=== PATIENT | female | born 1975 | race African-American/Black ===

== ENCOUNTER 2024-01-24 09:53 | Outpatient (CLI) | payer BC, SELFPAY ==
--- NOTE | ~2024-01-24 | US_ITS ---
EXAMINATION: US pelvic complete DATE: 01/24/2024 10:38 INDICATION: Abnormal uterine bleeding Comparison:01/22/2019 TECHNIQUE: Multiple transabdominal and endovaginal sonographic images of the pelvis performed. FINDINGS: The uterus measures 12.4 x 6.1 x 7.8 cm. There is a hypoechoic mass measuring 3.7 x 3.9 x 3 .4 cm posteriorly, consistent with a fibroid. The endometrial complex measures 1.4 cm. There is fluid in the endometrium. The right ovary measures 3.6 x 2.7 x 2.5 cm and the left ovary measures 3.3 x 1.9 x 4.1 cm. There ar e small follicles in each ovary. Normal doppler signal in both ovaries. There is no free fluid in the pelvis. There are no abnormal masses seen on either side. IMPRESSION: 1. Uterine fibroid posteriorly measuring 3.3 cm. Reviewed, dictated and finalized at location B.
== END 2024-01-24 09:54 ==
PROVIDERS: PCP Nurse Practitioner; Visit Provider Nurse Practitioner
DX: N93.8 Other specified abnormal uterine and vaginal bleeding (principal)
CPT/HCPCS: 76856

== ENCOUNTER 2024-04-02 08:30 | Outpatient (CLI) | payer BC, SELFPAY ==
[2024-04-02 08:57] LABS: Anion Gap 6 mmol/L (4-12); Blood Urea Nitrogen 11 mg/dL (7-17); Calcium 8.6 mg/dL (8.4-10.2); Carbon Dioxide 24 mmol/L (22-30); Chloride 109 mmol/L (98-107); Estimated Glomerular Filt Rate > 60; Glucose 95 mg/dL (65-110); Potassium 4.4 mmol/L (3.4-5.0); Sodium 139 mmol/L (137-145)
== END 2024-04-02 08:31 | disposition home or self-care (01) ==
LOC: ANHSURGERY 08:33
PROVIDERS: Anesthesiology; PCP Family Medicine; Visit Provider Obstetrics & Gynecology Gynecology
DX: Z79.899 Other long term (current) drug therapy (principal); Z01.818 Encounter for other preprocedural examination
CPT/HCPCS: 36415; 80048

== ENCOUNTER 2024-04-08 00:41 | Day surgery (SDC) | payer BC, SELFPAY ==
[2024-03-29 10:59] VITALS: BMI 28.3
--- NOTE | 2024-03-29 11:00 | PC.NURSE ---
Report to the Outpatient Waiting Room, entrance under the green pavilion located off [facility], at time _0600_ on date _[id number]_. Planned Procedure Time: _0730_. Time changes happen often and if your time is changed the preop area will call you the afternoon before. - You and your visitor will be asked to self-screen and do not enter if you have any COVID symptoms. - A mask is optional within the hospital at this time. Patients may have clear liquids (water, carbonated beverages, clear teas, apple juice) until 3 hours prior to surgery with a maximum of 20 ounces. - No food from midnight until time of surgery Take the following medications with a SIP of water the morning of surgery: ___Amlodipine and if needed inhalers. DO NOT STOP ANY OF YOUR OTHER PRESCRIPTION MEDICATIONS PRIOR TO SURGERY ?EXCEPT THE FOLLOWING Medications to discontinue per physician ____None Date to take last dose Please no make-up, nail central african, hairspray, perfume, deodorant, or body powder the day of surgery. No jewelry (including any body piercings) or valuables the day of surgery, leave them at home. Please take a shower or bath the night before, or the morning of, surgery with an antibacterial soap. Wear comfortable, loose fitting clothing. - Jewelry must be removed prior to entering the operating room. Rings and piercings that are not removed may be cut off. - The hospital will not accept responsibility for valuables. - Please leave all valuables, including medications, at home the day of surgery. If you are going home after surgery, a licensed dedicated truck driver must drive you home. - NO public transportation without another adult if you receive anesthesia. - We recommend that an adult stay with you for 24 hours following discharge. - We also recommend that you do not drive, make important decision, drink alcoholic beverages, or take any drugs that were not prescribed by your health care provider for at least 24 hours after your discharge time. Follow any additional instructions given to you from your surgeon. If you or anyone in your household have experienced Covid symptoms in the past week, please notify your surgeon or the nurse liaison at the phone number below for possible testing. Telephone instructions given to __Selmaestefani___and asked if any additional questions and then verbalized understanding. Patient advised to call surgeon office or pre surgery nurse liaison [phone] if any additional questions.
--- NOTE | 2024-04-08 07:22 | WPDHPUPDATE1 ---
History and Physical Update Update Date/Time: 04/08/24 07:22 History and Physical has been reviewed, including an updated exam of the patient. There are NO changes in the patient's condition. Risks, benefits, and alternatives have been discussed and questions answered. Patient agrees to proceed with procedure.
--- NOTE | 2024-04-08 07:22 | PM.HPGS ---
History of Present Illness History of Present Illness Consent: Risks, benefits, and alternatives have been discussed and questions answered. Patient agrees to proceed with procedure. Chief complaint: Abnormal Uterine Bleeding Narrative: Leatha Vallecillo is a 49 year old female with random breakthrough bleeding. Pelvic ultrasound is normal except for known fibroids. It was recommended to undergo D&C hysteroscopy for further evaluation. Due to her prior history of ablation the patient was given Cytotec to take for 1 week prior to the procedure. Risks of infection, bleeding, perforation, and inability to enter the cavity are reviewed. Patient voices understanding and agrees to proceed. Review of Systems Review of Systems: not repeated day of surgery; patient states no changes in status PMFSH Past Medical History Medical History (Updated 04/08/24 @ 07:26 by Jessica Cunningham MD) Asthma HTN (hypertension) (normal spontaneous vaginal delivery) x2 Surgical History Surgical History (Updated 04/08/24 @ 07:26 by Jessica Cunningham MD) History of endometrial ablation 2019 History of hysteroscopy 2019 Family History Family History Mother Hypertension Father Family history of cardiovascular disease Family history of lung cancer Social History Social History (Updated 01/29/24 @ 13:03 by Yamila Moody) Years smoked: 3 Smoking status: Current every day smoker Tobacco type: cigars Second hand tobacco smoke exposure: No Alcohol intake: current Drinks per week: 3 Alcohol use details: social Substance use: never Substance use type: does not use Do You Feel Safe in your Home?: Yes Lack of Transportation: No Lack of Food: Never True Current Housing: I Have Housing Concerned About Future Housing: No Difficulty Paying Gas/Electric Bills: No Difficulty Paying for Meds: No Currently Unemployed: No Education: Don't Know Difficulty w/ Childcare or Family Care: No Living arrangements: with family Occupation/Education: occupation Gender identity (if verbalized by the patient): Female Sexual Orientation (if Verbalized by the Patient): Straight or Heterosexual Spiritual care concerns: No Meds Home Medications and Allergies Home Medications Medication Instructions Recorded Confirmed Type fluticasone propionate 110 1 puff inhalation Q12H #12 grams 10/07/20 03/29/24 Rx mcg/actuation HFA aerosol inhaler (Flovent HFA) albuterol sulfate 90 mcg/actuation 1 puff inhalation Q4H PRN 09/21/21 03/29/24 Rx aerosol inhaler shortness of breath or wheezing #6.7 grams amlodipine 10 mg tablet (Norvasc) 10 mg PO DAILY #90 tabs 01/29/24 03/29/24 Rx hydrochlorothiazide 50 mg tablet 50 mg PO DAILY #60 tabs 01/29/24 03/29/24 Rx Allergies Allergy/AdvReac Type Severity Reaction Status Date / Time No Known Allergies Allergy Unverified 03/29/24 10:52 Exam Const: General: healthy appearing and alert Orientation/consciousness: patient oriented x3 Resp: Effort & Inspection: normal respiratory effort GI: GI Palp: Yes Soft to palpation, No Tenderness to palpation present (GI) and No Palpable mass present : External Female Exam: normal external appearance Speculum Exam - Vagina: normal appearance of the vagina and normal vaginal discharge Speculum Exam - Cervix: normal appearance of the cervix Bimanual exam- vagina & uterus: consistency normal and enlarged Bimanual Exam- Adnexa, other: normal adnexae and No adnexal tenderness Neuro: General: patient oriented x3 Assessment and Plan Assessment and plan (1) Metrorrhagia: Code(s): N92.1 - Excessive and frequent menstruation with irregular cycle Status: Acute Assessment and Plan: plan to proceed with D&C hysteroscopy
[2024-04-08 07:45] VITALS: BP 150/101; PULSE 97; RESP 20; TEMP 36.1; O2SAT 99
[2024-04-08] MEDS: ACETAMINOPHEN 500 MG TABLET 1000 MG PO (08:12)
[2024-04-08] MEDS: LACTATED RINGERS 1,000 ML 30 ML IV CONT ×2 (08:15→10:51)
--- NOTE | 2024-04-08 08:36 | WPDANESEPPF ---
Anes - Initial Pre Proc Eval Procedure: Operation Date: 04/08/24 09:30 Proposed Procedures p Hysteroscopy Dilation and Curettage - Jessica Cunningham MD Date/Time: 04/08/24 08:36 Surgeon: Jessica Cunningham MD Pre Op Diagnosis: Abnormal Uterine Bleeding Patient Data Age: 49 Gender: F Height: 1.65 m Weight: 74.4 kg Last Vital Signs Temp 97.0 F L 04/08/24 07:45 Pulse 97 04/08/24 07:45 Resp 20 04/08/24 07:45 BP 150/101 H 04/08/24 07:45 Pulse Ox 99 04/08/24 07:45 O2 Del Method Room Air 04/08/24 07:45 Allergies Allergy/AdvReac Type Severity Reaction Status Date / Time No Known Allergies Allergy Unverified 04/08/24 07:41 Home Medications Medication Instructions Recorded Confirmed Type fluticasone propionate 110 1 puff inhalation Q12H #12 grams 10/07/20 03/29/24 Rx mcg/actuation HFA aerosol inhaler (Flovent HFA) albuterol sulfate 90 mcg/actuation 1 puff inhalation Q4H PRN 09/21/21 03/29/24 Rx aerosol inhaler shortness of breath or wheezing #6.7 grams amlodipine 10 mg tablet (Norvasc) 10 mg PO DAILY #90 tabs 01/29/24 04/08/24 Rx hydrochlorothiazide 50 mg tablet 50 mg PO DAILY #60 tabs 01/29/24 04/08/24 Rx Patient hx anesthesia problems: none Family hx anesthesia problems: none Results Review: All pre-operative results and documents have been reviewed as part of the pre-operative evaluation. [facility] Past Medical History Medical History (Updated 04/08/24 @ 07:26 by Jessica Cunningham MD) Asthma HTN (hypertension) (normal spontaneous vaginal delivery) x2 Surgical History Surgical History (Updated 04/08/24 @ 07:26 by Jessica Cunningham MD) History of endometrial ablation 2019 History of hysteroscopy 2019 Family History Family History Mother Hypertension Father Family history of cardiovascular disease Family history of lung cancer Social History Social History (Updated 05/06/24 @ 13:03 by Yamila Moody) Years smoked: 3 Smoking status: Current every day smoker Tobacco type: cigars Second hand tobacco smoke exposure: No Alcohol intake: current Drinks per week: 3 Alcohol use details: social Substance use: never Substance use type: does not use Do You Feel Safe in your Home?: Yes Lack of Transportation: No Lack of Food: Never True Current Housing: I Have Housing Concerned About Future Housing: No Difficulty Paying Gas/Electric Bills: No Difficulty Paying for Meds: No Currently Unemployed: No Education: Don't Know Difficulty w/ Childcare or Family Care: No Living arrangements: with family Occupation/Education: occupation Gender identity (if verbalized by the patient): Female Sexual Orientation (if Verbalized by the Patient): Straight or Heterosexual Spiritual care concerns: No Anes - Eval Final PreProcedure Day of Procedure 04/08/24 08:36 Patient weight: normal Heart: regular rate and rhythm Lungs: clear to auscultation Airway: Mallampati scale class II Neurological: alert and oriented Last oral intake: >/= 8 hours ASA classification: II Emergent: no Anesthetic plan: proceed Anesthesia type and monitoring: general GIVS and standard monitoring Results Review: All pre-operative results and documents have been reviewed as part of the pre-operative evaluation. Informed Consent: The patient's anesthetic plan and its attendant risks and benefits were discussed with the patient/family/POA. Questions were solicited and answers provided to the satisfaction of the patient/family/POA.
--- NOTE | 2024-04-08 09:14 | SUR.PREOP ---
0900-Pt and family aware surgeon delays self ~30 minutes.
[2024-04-08] MEDS: KETOROLAC 15 MG/ML VIAL (*BKC) IV PUSH (10:43)
--- NOTE | 2024-04-08 10:44 | P.OP_ITS ---
Procedure Note - Detailed Date of Procedure 04/08/24 Pre-op Diagnosis Abnormal Uterine Bleeding Post-op Diagnosis Same Procedure Performed hysteroscopy D&C Surgeon Jessica Cunningham MD Anesthesia MAC Findings cervix is stenotic endometrium was very scarred consistent with prior ablation Description of Procedure The patient is taken to the operating room and placed under anesthesia in the dorsal lithotomy position. She was prepped and draped in the usual sterile fashion. Bethel speculum was placed in the vagina and the cervix grasped on the anterior lip with a tenaculum. The uterus was attempted to be sounded and internal cervical stenosis was encountered. The Hegar dilators were not able to pass. The os Finders are used and able to enter the cavity. The uterus is then sounded to 8cm. The diagnostic hysteroscope was placed. With no abnormalities noted the hysteroscope was removed. The sharp OO curette is used to curette the endometrium until a good uterine cry is noted in all areas. Minimal material was obtained consistent with the appearance of the endometrium. All instruments are removed. Sponge, needle, and instrument counts are correct per the OR staff. Patient was awakened from anesthesia and taken to recovery in sta ble condition. Estimated Blood Loss 5 Drains No Packing No Pathology Yes ( endometrial curettings) Complications No immediate complications Condition Stable Disposition PACU
[2024-04-08 10:51] VITALS: BP 130/75; PULSE 77; RESP 16; O2SAT 100
[2024-04-08 11:20] VITALS: BP 137/68; PULSE 70; RESP 18; O2SAT 100
[2024-04-08] MEDS: oxyCODONE HCL (*CRX) 5 MG TAB IR PO (11:25)
[2024-04-08 11:45] VITALS: BP 137/89; PULSE 69; RESP 16
== END 2024-04-08 11:57 | disposition home or self-care (01) ==
PROVIDERS: PCP Family Medicine; Visit Provider Obstetrics & Gynecology Gynecology
PROC: 0U5B8ZZ Destruction of Endometrium, Via Natural or Artificial Opening Endoscopic (ICD-10-PCS; CPT 58563; principal; 2024-04-08 09:30)
DX: N92.1 Excessive and frequent menstruation with irregular cycle (principal); J45.909 Unspecified asthma, uncomplicated; I10 Essential (primary) hypertension; Z79.51 Long term (current) use of inhaled steroids; F17.290 Nicotine dependence, other tobacco product, uncomplicated
CPT/HCPCS: 58558; 88305; A9270; J1100; J1885; J2250; J2704; J3010; J7120

== ENCOUNTER 2024-08-16 12:53 | Outpatient (CLI) | payer BC, SELFPAY ==
--- NOTE | 2024-08-16 13:13 | ECG_ITS ---
Test Date: 2024-08-16 13:37:18 Measurements Intervals Stow Rate: 73 P: 40 UT: 144 QRS: 8 QRSD: 95 T: 11 QT: 372 QTc: 412 Interpretive Statements SINUS RHYTHM POOR R WAVE PROGRESSION CONSIDER INFERIOR INFARCT, AGE INDETERMINATE BASELINE ARTIFACT- I, II, III, AVR, AVL, AVF ABNORMAL ECG No previous ECG available for comparison Electronically Signed On 08-16-2024 13:42:22 DATA SECURITY CONSULTANT by Anselmo Nye D.O.
[2024-08-16 13:43] LABS: Hematocrit 41.1 % (37.0-47.0); Hemoglobin 13.3 g/dL (12.0-15.0)
[2024-08-16 13:54] LABS: Anion Gap 4 mmol/L (4-12); Blood Urea Nitrogen 12 mg/dL (7-17); Calcium 9.3 mg/dL (8.4-10.2); Carbon Dioxide 29 mmol/L (22-30); Chloride 106 mmol/L (98-107); Estimated Glomerular Filt Rate > 60; Glucose 95 mg/dL (65-110); Potassium 3.9 mmol/L (3.4-5.0); Sodium 139 mmol/L (137-145)
== END 2024-08-16 12:54 | disposition home or self-care (01) ==
LOC: ANHSURGERY 13:01
PROVIDERS: Anesthesiology; PCP Family Medicine; Visit Provider Obstetrics & Gynecology Gynecology
DX: Z01.818 Encounter for other preprocedural examination (principal); N92.1 Excessive and frequent menstruation with irregular cycle; I10 Essential (primary) hypertension; R94.31 Abnormal electrocardiogram [ECG] [EKG]; Z79.899 Other long term (current) drug therapy
CPT/HCPCS: 36415; 80048; 85014; 85018; 86850; 86900; 86901; 93005

== ENCOUNTER 2024-08-19 13:17 | Inpatient (IN) | payer BC, SELFPAY ==
[2024-08-15 15:26] VITALS: BMI 28.3
--- NOTE | 2024-08-15 15:32 | PC.NURSE ---
Report to the Outpatient Waiting Room, entrance under the green pavilion located off [facility], at time _0830_ on date _[id number]_. Planned Procedure Time: _1030_.? Time changes happen often and if your time is changed the preop area will call you the afternoon before. - You and your visitor will be asked to self-screen and do not enter if you have any COVID symptoms. Please call surgeon if you need to reschedule. - A mask is optional within the hospital at this time. Patients may have clear liquids (water, carbonated beverages, clear teas, apple juice) until 3 hours prior to surgery with a maximum of 20 ounces. - No food from midnight until time of surgery and no smoking. This includes no chewing gum, candy or mints. Take only the following medications with a SIP of water on the morning of surgery: __Amlodipine, Flovent and if needed may use Albuterol____ DO NOT STOP ANY OF YOUR OTHER PRESCRIPTION MEDICATIONS PRIOR TO SURGERY EXCEPT THE FOLLOWING Medications to discontinue per physician ____None Please no make-up, nail chinese, hairspray, perfume, deodorant, or body powder the day of surgery.? No jewelry (including any body piercings) or valuables the day of surgery, leave them at home.? Please take a shower or bath the night before, or the morning of, surgery with an antibacterial soap.? Wear comfortable, loose fitting clothing.? . - Jewelry must be removed prior to entering the operating room.? Rings and piercings that are not removed may be cut off. - The hospital will not accept responsibility for valuables.? - Please leave all valuables, including medications, at home the day of surgery. If you are going home after surgery, a licensed security patrol driver must drive you home.? - NO public transportation without another adult if you receive anesthesia. - We recommend that an adult stay with you for 24 hours following discharge. - We also recommend that you do not drive, make important decision, drink alcoholic beverages, or take any drugs that were not prescribed by your health care provider for at least 24 hours after your discharge time. Follow any additional instructions given to you from your surgeon. Telephone instructions given to _Leatha__and asked if any additional questions and then verbalized understanding. Patient advised to call surgeon office or pre surgery nurse liaison [phone] if any additional questions.
[2024-08-19] VITALS (10 sets, daily range): BP systolic 112–155; BP diastolic 52–96; PULSE 67–97; RESP 12–20; TEMP 36.1–37.3; O2SAT 97–100
--- NOTE | 2024-08-19 08:01 | P.HP_ITS ---
H&P: HPI History of Present Illness Date/Time: 08/19/24 08:01 Chief Complaint: dysmenorrhea Narrative: The the patient is a 49-year-old with persistent dysmenorrhea. Patient initially with menorrhagia and dysmenorrhea. She underwent a Faye endometrial ablation. The menorrhagia resolved but the dysmenorrhea remained. Patient has tried medication and underwent a 2nd hysteroscopy D&C in 2023 without success. Patient has decided to proceed with hysterectomy for definitive treatment. Due to the size of her uterus at approximately 16 weeks size, the plan is for total abdominal hysterectomy. In addition pros and cons of bilateral salpingo-oophorectomy were reviewed. Patient wishes to proceed with a bilateral salpingo-oophorectomy. Risks of hormone replacement were also reviewed and the plan is for hormone replacement postoperatively. Risks of surgery including infection, bleeding, injury to internal organs (bowel, bladder, ureters), anesthesia, and deep vein thrombosis are reviewed. Patient voices understanding and agrees to proceed. Review of Systems Review of Systems: not repeated day of surgery; patient states no changes in status PMFSH Past Medical History Medical History (Updated 08/19/24 @ 08:06 by Jessica Cunningham MD) Asthma HTN (hypertension) (normal spontaneous vaginal delivery) x2 Surgical History Surgical History (Updated 08/19/24 @ 08:04 by Jessica Cunningham MD) History of bilateral tubal ligation History of endometrial ablation 2018 History of hysteroscopy Family History Family History Mother Hypertension Father Family history of cardiovascular disease Family history of lung cancer Social History Social History Years smoked: 3 Smoking status: Current some day smoker Tobacco type: cigars Second hand tobacco smoke exposure: No Alcohol intake: current Drinks per week: 3 Alcohol use details: social Substance use: never Substance use type: does not use Do You Feel Safe in your Home?: Yes Lack of Transportation: No Lack of Food: Never True Current Housing: I Have Housing Concerned About Future Housing: No Difficulty Paying Gas/Electric Bills: No Difficulty Paying for Meds: No Currently Unemployed: No Education: Don't Know Difficulty w/ Childcare or Family Care: No Living arrangements: with family Occupation/Education: occupation Gender identity (if verbalized by the patient): Female Sexual Orientation (if Verbalized by the Patient): Straight or Heterosexual Spiritual care concerns: No Meds Home Medications and Allergies Home Medications Medication Instructions Recorded Confirmed Type fluticasone propionate 110 1 puff inhalation Q12H #12 grams 10/07/20 08/15/24 Rx mcg/actuation HFA aerosol inhaler (Flovent HFA) albuterol sulfate 90 mcg/actuation 1 puff inhalation Q4H PRN 09/21/21 08/15/24 Rx aerosol inhaler shortness of breath or wheezing #6.7 grams hydrochlorothiazide 50 mg tablet 50 mg PO DAILY #60 tabs 01/29/24 08/15/24 Rx losartan 25 mg tablet 25 mg PO DAILY #90 tabs 05/08/24 08/15/24 Rx benzonatate 100 mg capsule 100 - 200 mg PO TID PRN cough #60 05/31/24 08/15/24 Rx caps tirzepatide (weight loss) 2.5 2.5 mg (0.5 mL) subcut WEEKLY #2 mL 06/08/24 08/15/24 Rx mg/0.5 mL subcutaneous pen injector (Zepbound) amlodipine 10 mg tablet (Norvasc) 10 mg PO DAILY #90 tabs 07/18/24 08/15/24 Rx Allergies Allergy/AdvReac Type Severity Reaction Status Date / Time No Known Allergies Allergy Verified 08/15/24 15:51 Exam Const: General: healthy appearing and alert Orientation/consciousness: patient oriented x3 Resp: Effort & Inspection: normal respiratory effort GI: GI Palp: Yes Soft to palpation, No Tenderness to palpation present (GI) and No Palpable mass present : External Female Exam: normal external appearance Speculum Exam - Vagina: normal appearance of the vagina and normal vaginal discharge Speculum Exam - Cervix: normal appearance of the cervix Bimanual exam- vagina & uterus: enlarged Bimanual Exam- Adnexa, other: normal adnexae and No adnexal tenderness Neuro: General: patient oriented x3 Assessment and Plan Assessment and plan (1) Dysmenorrhea: Code(s): N94.6 - Dysmenorrhea, unspecified Status: Acute Assessment and Plan: plan to proceed with total abdominal hysterectomy with bilateral salpingo- oophorectomy
--- NOTE | 2024-08-19 08:01 | WPDHPUPDATE1 ---
History and Physical Update Update Date/Time: 08/19/24 08:01 History and Physical has been reviewed, including an updated exam of the patient. There are NO changes in the patient's condition. Risks, benefits, and alternatives have been discussed and questions answered. Patient agrees to proceed with procedure.
[2024-08-19] MEDS: KETOROLAC 15 MG/ML VIAL (*BKC) IV PUSH (09:15)
[2024-08-19] MEDS: ACETAMINOPHEN 500 MG TABLET 1000 MG PO ×3 (09:15→19:51)
[2024-08-19] MEDS: LACTATED RINGERS 1,000 ML 30 ML IV CONT ×2 (09:30→12:00)
[2024-08-19 10:04] LABS: Glucose Point of Care 104 mg/dl (65-105)
--- NOTE | 2024-08-19 10:06 | WPDANESEPPF ---
Anes - Initial Pre Proc Eval Procedure: Operation Date: 08/19/24 10:30 Proposed Procedures p Total Abdominal Hysterectomy with Bilateral Salpingo-oophorectomy - Jessica Cunningham MD Date/Time: 08/19/24 10:06 Surgeon: Jessica Cunningham MD Pre Op Diagnosis: Dysmenorrhea Patient Data Age: 49 Gender: F Height: 1.65 m Weight: 77.3 kg Allergies Allergy/AdvReac Type Severity Reaction Status Date / Time No Known Allergies Allergy Verified 08/15/24 15:51 Home Medications Medication Instructions Recorded Confirmed Type fluticasone propionate 110 1 puff inhalation Q12H #12 grams 10/07/20 08/15/24 Rx mcg/actuation HFA aerosol inhaler (Flovent HFA) albuterol sulfate 90 mcg/actuation 1 puff inhalation Q4H PRN 09/21/21 08/15/24 Rx aerosol inhaler shortness of breath or wheezing #6.7 grams hydrochlorothiazide 50 mg tablet 50 mg PO DAILY #60 tabs 01/29/24 08/15/24 Rx losartan 25 mg tablet 25 mg PO DAILY #90 tabs 05/08/24 08/15/24 Rx benzonatate 100 mg capsule 100 - 200 mg PO TID PRN cough #60 05/31/24 08/15/24 Rx caps tirzepatide (weight loss) 2.5 2.5 mg (0.5 mL) subcut WEEKLY #2 mL 06/08/24 08/15/24 Rx mg/0.5 mL subcutaneous pen injector (Zepbound) amlodipine 10 mg tablet (Norvasc) 10 mg PO DAILY #90 tabs 07/18/24 08/15/24 Rx Laboratory Tests 08/19/24 09:54 POC Capillary Glucose 104 mg/dl (65-105) Patient hx anesthesia problems: none Family hx anesthesia problems: none Results Review: All pre-operative results and documents have been reviewed as part of the pre-operative evaluation. [facility] Past Medical History Medical History (Updated 08/19/24 @ 08:06 by Jessica Cunningham MD) Asthma HTN (hypertension) (normal spontaneous vaginal delivery) x2 Surgical History Surgical History (Updated 08/19/24 @ 08:04 by Jessica Cunningham MD) History of bilateral tubal ligation History of endometrial ablation 2018 History of hysteroscopy Family History Family History Mother Hypertension Father Family history of cardiovascular disease Family history of lung cancer Social History Social History Years smoked: 3 Smoking status: Current some day smoker Tobacco type: cigars Second hand tobacco smoke exposure: No Alcohol intake: current Drinks per week: 3 Alcohol use details: social Substance use: never Substance use type: does not use Do You Feel Safe in your Home?: Yes Lack of Transportation: No Lack of Food: Never True Current Housing: I Have Housing Concerned About Future Housing: No Difficulty Paying Gas/Electric Bills: No Difficulty Paying for Meds: No Currently Unemployed: No Education: Don't Know Difficulty w/ Childcare or Family Care: No Living arrangements: with family Occupation/Education: occupation Gender identity (if verbalized by the patient): Female Sexual Orientation (if Verbalized by the Patient): Straight or Heterosexual Spiritual care concerns: No Anes - Eval Final PreProcedure Day of Procedure 08/19/24 10:06 Patient weight: obese Heart: regular rate and rhythm Lungs: clear to auscultation Neurological: alert and oriented Last oral intake: >/= 8 hours Emergent: no Anesthetic plan: proceed Anesthesia type and monitoring: general ETT and standard monitoring Results Review: All pre-operative results and documents have been reviewed as part of the pre-operative evaluation. Informed Consent: The patient's anesthetic plan and its attendant risks and benefits were discussed with the patient/family/POA. Questions were solicited and answers provided to the satisfaction of the patient/family/POA.
[2024-08-19] MEDS: ceFAZolin 2 GM/D5W 50 ML 2 GM/50 ML BAG IVPB (10:29)
--- NOTE | 2024-08-19 11:50 | W.PM.PROC2 ---
Procedure Note - Detailed Date of Procedure 08/19/24 Pre-op Diagnosis Dysmenorrhea Post-op Diagnosis Same Procedure Performed Total abdominal hysterectomy bilateral salpingo oophorectomy Surgeon Jessica Cunningham MD Anesthesia General Findings bilateral tubes and ovaries are adherent to the sidewalls uterus enlarged with fibroids Description of Procedure The patient is taken to the operating room placed under anesthesia dorsal supine position she was prepped and draped in usual sterile fashion. Pfannenstiel skin incision was made a scalpel and carried into underlying layer of fascia which was nicked in the midline. Bleeding vessels were cauterized for hemostasis. The fascial incision was extended laterally using Cruz scissors. Ochsner was used to tent the fascia which was then dissected off using sharp and blunt dissection. The rectus muscles were in the midline and the peritoneum was entered with a Peon. Incision was extended with blunt traction. Bowel was packed away using moist laparotomy sponges. The Balfor retractor was placed. The uterus was grasped on the cornu with large peans. The tubes and ovaries were dissected off the sidewall using sharp and blunt dissection. The round ligaments are doubly ligated, transected, and the anterior leaf of the broad ligament incised meeting in the midline. The window was created in the posterior leaf of the broad ligament. The infundibulopelvic ligament was doubly clamped, transected, and suture ligated with 0 Vicryl. The same is performed on the opposite side. The uterine vessels are skeletonized, clamped, transected, and suture ligated with 0 Vicryl. The cardinal and uterosacral ligaments are serially clamped, transected, and suture ligated with 0 Vicryl. On the left side a small piece of tube is left due to dense adhesions to the sidewall. The uterosacral ligaments were tagged for future use. The scalpel was used to enter the vaginal cuff anteriorly. The Allis clamp was used to grasp the vaginal cuff. The specimen was then amputated using Mauricio scissors while grasping the cuff as it is cut. The vaginal cuff was then closed using 0 Vicryl in a running locked fashion. Additional [id number] sutures were required near the right angle. Good hemostasis was then obtained. The pelvis is irrigated all pedicles were noted to be hemostatic. The instruments and sponges are removed. The fascia was closed using 0 Vicryl in a running fashion. Subcutaneous tissue was noted to be hemostatic. The skin was closed using 4-0 Vicryl in a subcuticular fashion. Dermaflex was placed over the incision. Sponge, needle, and instrument counts are correct per the OR staff. The patient received Ancef prior to incision. The patient was awakened from anesthesia and taken to recovery in stable condition. Estimated Blood Loss 50 Drains Yes ( Jose) Packing No Pathology Yes ( uterus tubes and ovaries) Complications No immediate complications Condition Stable Disposition PACU
--- NOTE | 2024-08-19 11:56 | P.DS_ITS ---
DS: Admitting Diagnosis Discharge Date 08/21/24 Admitting Diagnosis Dysmenorrhea DS: Discharge Diagnosis Discharge Diagnosis (1) Status post total abdominal hysterectomy and bilateral salpingo- oophorectomy: Code(s): Z90.710 - Acquired absence of both cervix and uterus; Z90.722 - Acquired absence of ovaries, bilateral; Z90.79 - Acquired absence of other genital organ(s) Status: Acute DS: Summary Hospital Course Hospital Course: At the time of discharge, the patient is tolerating regular diet, voiding, and ambulating without difficulty. She prefers estradiol in pill form. This was sent to the pharmacy. Status at Discharge Functional status at discharge: independent ambulation Overall status at discharge: patient is progressing back to baseline Time Spent with Patient Time attestation: Total time spent providing and/or coordinating discharge services: DS: Data Data Completed and Pending Pending studies at discharge: Pending at discharge 08/19/24 11:49 Surgical [PTH] Routine Labs on day of discharge: Labs from last 24 hours 08/19/24 09:54 POC Capillary Glucose 104 Discharge Plan Discharge Attending physician on discharge: Jessica Cunningham Discharging Clinician: Lisa Ortiz Anticipated Discharge Date/Time: 08/21/24 07:43 Patient Disposition: Home, Self-Care Activity: may shower and pelvic rest Diet: as tolerated and regular Wound Care Instructions: follow printed instructions Discharge Instructions: No driving while taking narcotics for pain. Patient Instructions: Hysterectomy (DC) Stand Alone Forms: General Discharge Instructions, Work/School Release IP Follow-up/Referrals: Jessica Cunningham MD [Physician] - Keep Reg. Scheduled Appt. Discharge Medications: New estradiol 1 mg tablet 1 mg PO DAILY Qty: 90 3RF oxycodone 5 mg Tablet 5 mg PO Q4H PRN (Reason: Pain Rated 4-6) Qty: 20 0RF Continued hydrochlorothiazide 50 mg tablet 50 mg PO DAILY Qty: 60 2RF Flovent HFA 110 mcg/actuation HFA aerosol inhaler 1 puff inhalation Q12H Qty: 12 3RF Rx Instructions: administer with spacer losartan 25 mg tablet 25 mg PO DAILY Qty: 90 1RF Zepbound 2.5 mg/0.5 mL pen injector 2.5 mg subcut WEEKLY Qty: 2 0RF Rx Instructions: for 4 weeks Never received. albuterol sulfate 90 mcg/actuation HFA aerosol inhaler 1 puff INHALATION Q4H PRN (Reason: shortness of breath or wheezing) Qty: 6.7 2RF benzonatate 100 mg capsule 100 - 200 mg PO TID PRN (Reason: cough) Qty: 60 0RF Rx Instructions: Take 1 to 2 caps (100 to 200 mg) TID prn for cough. Max 600 mg/day amlodipine [Norvasc] 10 mg tablet 10 mg PO DAILY Qty: 90 0RF Date of admission: 08/19/24 13:17 Primary Care Provider: Ihsan Tavarez Admitting Provider: Jessica Cunningham Attending physician on admission: Jessica Cunningham Condition: Stable
[2024-08-19] MEDS: fentaNYL CITRATE INJ (*CRX) 100 MCG/2 ML VIAL 25 MCG IV PUSH ×8 (12:28→13:10)
--- NOTE | 2024-08-19 13:25 | PC.NURSE ---
This patient, Leatha Vallecillo, was received from PACU on 08/19/24 at 1325. Patient/family oriented to unit policies and routines
[2024-08-19] MEDS: DEXTROSE 5%/LACTATED RINGERS 1,000 ML 125 ML (14:14)
[2024-08-19] MEDS: ONDANSETRON INJ 4 MG/2 ML VIAL (14:15)
[2024-08-19] MEDS: KETOROLAC 30 MG/ML VIAL (*BKC) IV PUSH ×2 (14:15→19:52)
[2024-08-19] MEDS: PROMETHAZINE HCL 25 MG/ML AMPUL 12.5 MG IM (15:52)
[2024-08-19] MEDS: oxyCODONE HCL (*CRX) 5 MG TAB IR PO ×2 (18:49→21:39)
[2024-08-19] MEDS: SIMETHICONE 80 MG TAB.CHEW PO (19:02)
[2024-08-19] MEDS: ZOLPIDEM TARTRATE (*CRX) 5 MG TABLET PO (21:53)
[2024-08-20 00:50] VITALS: BP 128/60; PULSE 92; RESP 14; TEMP 36.7; O2SAT 95
[2024-08-20] MEDS: KETOROLAC 30 MG/ML VIAL (*BKC) IV PUSH (01:55)
[2024-08-20] MEDS: ACETAMINOPHEN 500 MG TABLET 1000 MG PO ×4 (01:55→20:39)
[2024-08-20] MEDS: oxyCODONE HCL (*CRX) 5 MG TAB IR 10 MG PO ×3 (04:15→14:32)
[2024-08-20 04:29] VITALS: BP 130/75; PULSE 86; RESP 14; TEMP 36.7; O2SAT 96
[2024-08-20 05:48] LABS: Hematocrit 36.4 % (37.0-47.0); Hemoglobin 11.8 g/dL (12.0-15.0); Immature Granulocyte Absolute 0.06 K/mm3 (0.00-0.031); Immature Granulocyte Percent A 0.5 % (0-0.5); Lymphocytes Absolute Auto 1.36 K/mm3 (0.9-3.2); Lymphocytes Percent Auto 11.4 % (18.3-44.2); Mean Corpuscular HGB Conc 32.4 g/dl (32-36); Mean Corpuscular Hemoglobin 26.1 pg (26-34); Mean Corpuscular Volume 80.5 fl (80-100); Mean Platelet Volume 10.4 fl (7.4-10.4); Neutrophils Absolute Auto 9.5 K/mm3 (1.3-6.7); Neutrophils Percent Auto 80.1 % (45.5-73.1); Platelet Count Result 335 k/mm3 (150-375); Red Blood Count 4.52 M/mm3 (4.2-5.4); Red Cell Distribution Width 14.8 % (11.5-14.5); White Blood Count 11.9 K/mm3 (4.5-10.0)
--- NOTE | 2024-08-20 07:42 | PM.GYNPNOP ---
COPY [employer]HE [employer]ENDER - A/P Postoperative Procedures: Procedures Operation Date: 08/19/24 10:30 Actual Procedure Side Surgeon p Total Abdominal Hysterectomy with Bilateral Salpingo-oophorectomy Jessica Cunningham MD Postoperative day: 1 Postoperative status: doing well Postoperative plan: routine post-op care Time Spent With Patient Time: Total time spent is greater than 50% in coordination of care (as documented) at patient's floor/unit and/or counseling patient: Time with patient: less than 15 minutes [employer]- PN:Subj Post-Op Subjective Date/time seen: 08/20/24 07:42 Subjective: patient has no complaints, pain is well controlled and patient is tolerating oral intake Exam Narrative: inc c/d/i abdomen soft, nt, nd [employer] - PN: Obj Data Vital Signs Vital Signs: Vital Signs - 24 hr 08/19/24 09:15 08/19/24 12:00 08/19/24 12:15 Temperature 97.2 F L 97.0 F L Pulse Rate 84 67 72 Respiratory Rate 16 17 14 Blood Pressure 155/96 H 112/52 L 114/65 Pulse Oximetry 100 100 100 Oxygen Delivery Room Air Simple Face Mask Simple Face Mask Oxygen Flow Rate 8 8 08/19/24 12:30 08/19/24 12:45 08/19/24 13:00 Temperature Pulse Rate 76 93 84 Respiratory Rate 20 14 15 Blood Pressure 144/78 H 139/88 139/96 H Pulse Oximetry 100 100 98 Oxygen Delivery Simple Face Mask Room Air Room Air Oxygen Flow Rate 8 08/19/24 13:14 08/19/24 13:30 08/19/24 16:29 Temperature 97.7 F 98.6 F Pulse Rate 93 97 92 Respiratory Rate 12 16 14 Blood Pressure 148/84 H 149/89 H 124/78 Pulse Oximetry 99 100 100 Oxygen Delivery Room Air Oxygen Flow Rate 08/19/24 18:52 08/20/24 00:50 08/20/24 04:29 Temperature 99.1 F 98.1 F 98.1 F Pulse Rate 95 92 86 Respiratory Rate 12 14 14 Blood Pressure 127/83 128/60 130/75 Pulse Oximetry 97 95 96 Oxygen Delivery Oxygen Flow Rate Intake/Output Intake/Output: Intake & Output 08/17/24 08/18/24 08/19/24 08/20/24 23:59 23:59 23:59 23:59 Intake Total 290 1250 Output Total 192 8427 Balance -360 -359 Meds/Results Medications: Active Medications Generic Name Dose Route Start Last Admin Trade Name Freq PRN Reason Stop Dose Admin Acetaminophen 1,000 mg 08/19/24 15:00 08/20/24 01:55 Acetaminophen 500 Mg Tablet PO 500 mg Q6H ANTOINETTE Administration Albuterol 1 puff 08/19/24 13:17 Albuterol Sulfate (*Sp) Aerosol 1 Puff INHALATION Q4HRT PRN shortness of breath or wheezing Amlodipine Besylate 10 mg 08/20/24 09:00 Amlodipine Besylate 10 Mg Tablet PO DAILY [facility] Benzonatate 100 - 200 mg 08/19/24 13:17 Benzonatate 100 Mg Capsule PO TID PRN cough Docusate Sodium 100 mg 08/19/24 17:00 08/19/24 17:12 Docusate Sodium 100 Mg Capsule PO Not Given BID ANTOINETTE Fluticasone Propionate 1 puff 08/19/24 20:00 08/19/24 22:09 Fluticasone Prop 110 Mcg Inhaler 12 Gm (*Sp) INHALATION Not Given Q12HRT [facility] Hydrochlorothiazide 50 mg 08/20/24 09:00 Hydrochlorothiazide 25 Mg Tablet PO DAILY [facility] Ibuprofen 600 mg 08/20/24 09:00 Ibuprofen 600 Mg Tablet PO Q6H [facility] Losartan Potassium 25 mg 08/20/24 09:00 Losartan Potassium 25 Mg Tablet PO DAILY [facility] Naloxone HCl 0.1 mg 08/19/24 13:17 Naloxone Hcl 0.4 Mg/Ml Vial IV PUSH Q2M PRN Respiratory rate less than 10 Ondansetron HCl 4 mg 08/19/24 13:17 Ondansetron Inj 4 Mg/2 Ml Vial IV PUSH Q6H PRN Nausea Oxycodone HCl 5 mg 08/19/24 13:17 08/19/24 21:39 Oxycodone Hcl (*Crx) 5 Mg Tab Ir PO 5 mg Q4H PRN Administration Pain Rated 4-6 Oxycodone HCl 10 mg 08/19/24 13:17 08/20/24 04:15 Oxycodone Hcl (*Crx) 5 Mg Tab Ir PO 10 mg Q6H PRN Administration Pain Rated 7-10 Simethicone 80 mg 08/19/24 13:17 08/19/24 19:02 Simethicone 80 Mg Tab.Chew PO 80 mg TIDWM ANTOINETTE Administration Zolpidem Tartrate 5 mg 08/19/24 21:44 08/19/24 21:53 Zolpidem Tartrate (*Crx) 5 Mg Tablet PO 5 mg HS PRN Administration Insomnia Labs 08/20/24 04:37 Labs: Laboratory Results - last 24 hr 08/19/24 08/20/24 09:54 04:37 WBC 11.9 H RBC 4.52 Hgb 11.8 L Hct 36.4 L MCV 80.5 MCH 26.1 MCHC 32.4 RDW 14.8 H Plt Count 335 MPV 10.4 Immature Gran % (Auto) 0.5 Neut % (Auto) 80.1 H Lymph % (Auto) 11.4 L [place] % (Auto) 8.0 Eos % (Auto) 0.0 Baso % (Auto) 0.0 L Lymph # (Auto) 1.36 [place] # (Auto) 1.0 H Eos # (Auto) 0.0 Baso # (Auto) 0.0 Abs Immat Gran (auto) 0.06 H Absolute Neuts (auto) 9.5 H Absolute Nucleated RBC 0.000 Nucleated RBC % 0.0 POC Capillary Glucose 104
[2024-08-20] MEDS: amLODIPine BESYLATE 10 MG TABLET PO (08:21)
[2024-08-20] MEDS: IBUPROFEN 600 MG TABLET PO ×3 (08:21→20:39)
[2024-08-20] MEDS: LOSARTAN POTASSIUM 25 MG TABLET PO (08:21)
[2024-08-20] MEDS: hydroCHLOROthiazide 25 MG TABLET 50 MG PO (08:21)
[2024-08-20] MEDS: SIMETHICONE 80 MG TAB.CHEW PO ×3 (08:21→16:52)
[2024-08-20] MEDS: DOCUSATE SODIUM 100 MG CAPSULE PO ×2 (08:21→16:52)
[2024-08-20 08:28] VITALS: BP 132/84; PULSE 90; RESP 14; RESP 16; TEMP 36.8; O2SAT 97
--- NOTE | 2024-08-20 08:56 | WPDANESPN ---
Anes - Prog Note Post-Op Date/Time: 08/20/24 08:56 Cardiovascular status: normal Respiratory status: normal Airway patency: baseline Mental status: baseline Post-Op hydration status: normal Vital Signs: Last Vital Signs Temp 36.7 C 08/20/24 04:29 Pulse 86 08/20/24 04:29 Resp 14 08/20/24 04:29 BP 130/75 08/20/24 04:29 Pulse Ox 96 08/20/24 04:29 O2 Del Method Room Air 08/19/24 13:14 O2 Flow Rate 8 08/19/24 12:30 Pain Score (VAS): 12/02 I/O: Intake & Output 08/19/24 08/20/24 08/20/24 23:59 07:59 15:59 Intake Total 1250 Output Total 1475 Balance -225 Laboratory Tests 08/20/24 04:37 08/19/24 08/20/24 09:54 04:37 WBC 11.9 H RBC 4.52 Hgb 11.8 L Hct 36.4 L MCV 80.5 MCH 26.1 MCHC 32.4 RDW 14.8 H Plt Count 335 MPV 10.4 Immature Gran % (Auto) 0.5 Neut % (Auto) 80.1 H Lymph % (Auto) 11.4 L Parke % (Auto) 8.0 Eos % (Auto) 0.0 Baso % (Auto) 0.0 L Lymph # (Auto) 1.36 Parke # (Auto) 1.0 H Eos # (Auto) 0.0 Baso # (Auto) 0.0 Abs Immat Gran (auto) 0.06 H Absolute Neuts (auto) 9.5 H Absolute Nucleated RBC 0.000 Nucleated RBC % 0.0 POC Capillary Glucose 104 Post-procedural complaints: none Patient Feedback: Patient satisfied with anesthetic care.
[2024-08-20] MEDS: FLUTICASONE PROP 110 MCG INHALER 12 GM (*SP) 1 PUFF INHALATION ×2 (09:00→19:50)
[2024-08-20 19:50] VITALS: PULSE 86; RESP 18
[2024-08-20 20:25] VITALS: BP 128/79; PULSE 75; RESP 14; TEMP 36.9; O2SAT 99
[2024-08-21] MEDS: ACETAMINOPHEN 500 MG TABLET 1000 MG PO ×2 (04:18→10:44)
[2024-08-21] MEDS: IBUPROFEN 600 MG TABLET PO ×2 (04:19→10:44)
[2024-08-21 04:20] VITALS: BP 139/83; PULSE 70; RESP 12; TEMP 36.7; O2SAT 100
--- NOTE | 2024-08-21 07:41 | P.PN_ITS ---
Progress Note: A&P Assessment and Plan (1) Post-op pain: Code(s): G89.18 - Other acute postprocedural pain Status: Acute (2) Status post total abdominal hysterectomy and bilateral salpingo- oophorectomy: Code(s): Z90.710 - Acquired absence of both cervix and uterus; Z90.722 - Acquired absence of ovaries, bilateral; Z90.79 - Acquired absence of other genital organ(s) Status: Acute Plan DC home today. Subjective Date/time seen: 08/21/24 07:15 Interval history: POD 2 from [facility] with BSO. Doing well. Urinating without difficulty. Pain well controlled with po medications. Reports scant smear of old red blood on pad occasionally. Review of Systems Review of Systems: All systems reviewed & are unremarkable except as noted in HPI and below Exam Const: General: cooperative, no acute distress and awake Orientation/consciousness: patient oriented x3 Limitations: no limitations Resp: Effort & Inspection: normal respiratory effort and able to speak in complete sentences Auscultation: clear to auscultation bilaterally Cardio: Rate: regular rate Peripheral pulses: Peripheral pulses 2+ throughout GI: Inspection: normal to inspection Auscultation: normal bowel sounds : General: Yes bladder normal to palpation Skin: General skin exam: normal color Other: Incision clean, dry, intact. Neuro: General: patient oriented x3 Cognition (Neuro): normal cognition Speech: normal speech Extrem: General: normal to inspection Psych: Appearance: grossly normal Mental Status: mental status grossly normal Speech and movement: Normal speech and movement present Affect: normal affect Attitude: cooperative Thought process: Normal thought process present Objective Data Vital Signs Vital Signs: Vital Signs - 24 hr 08/20/24 08:28 08/20/24 08:28 08/20/24 19:50 Temperature 98.2 F Pulse Rate 90 90 86 Respiratory Rate 16 14 18 Blood Pressure 132/84 Pulse Oximetry 97 97 Oxygen Delivery Room Air 08/20/24 20:25 08/21/24 04:20 Temperature 98.5 F 98.0 F Pulse Rate 75 70 Respiratory Rate 14 12 Blood Pressure 128/79 139/83 Pulse Oximetry 99 100 Oxygen Delivery Intake/Output Intake/Output: Intake & Output 08/18/24 08/19/24 08/20/24 08/21/24 23:59 23:59 23:59 23:59 Intake Total 290 3000 Output Total 650 9780 Balance -360 1150 Meds/Results Medications: Active Medications Generic Name Dose Route Start Last Admin Trade Name Freq PRN Reason Stop Dose Admin Acetaminophen 1,000 mg 08/19/24 15:00 08/21/24 04:18 Acetaminophen 500 Mg Tablet PO 1,000 mg Q6H ANTOINETTE Administration Albuterol 1 puff 08/19/24 13:17 Albuterol Sulfate (*Sp) Aerosol 1 Puff INHALATION Q4HRT PRN shortness of breath or wheezing Amlodipine Besylate 10 mg 08/20/24 09:00 08/20/24 08:21 Amlodipine Besylate 10 Mg Tablet PO 10 mg DAILY ANTOINETTE Administration Benzonatate 100 - 200 mg 08/19/24 13:17 Benzonatate 100 Mg Capsule PO TID PRN cough Docusate Sodium 100 mg 08/19/24 17:00 08/20/24 16:52 Docusate Sodium 100 Mg Capsule PO 100 mg BID ANTOINETTE Administration Fluticasone Propionate 1 puff 08/19/24 20:00 08/20/24 19:50 Fluticasone Prop 110 Mcg Inhaler 12 Gm (*Sp) INHALATION 1 puff Q12HRT ANTOINETTE Administration Hydrochlorothiazide 50 mg 08/20/24 09:00 08/20/24 08:21 Hydrochlorothiazide 25 Mg Tablet PO 50 mg DAILY ANTOINETTE Administration Ibuprofen 600 mg 08/20/24 09:00 08/21/24 04:19 Ibuprofen 600 Mg Tablet PO 600 mg Q6H ANTOINETTE Administration Losartan Potassium 25 mg 08/20/24 09:00 08/20/24 08:21 Losartan Potassium 25 Mg Tablet PO 25 mg DAILY ANTOINETTE Administration Naloxone HCl 0.1 mg 08/19/24 13:17 Naloxone Hcl 0.4 Mg/Ml Vial IV PUSH Q2M PRN Respiratory rate less than 10 Ondansetron HCl 4 mg 08/19/24 13:17 Ondansetron Inj 4 Mg/2 Ml Vial IV PUSH Q6H PRN Nausea Oxycodone HCl 5 mg 08/19/24 13:17 08/19/24 21:39 Oxycodone Hcl (*Crx) 5 Mg Tab Ir PO 5 mg Q4H PRN Administration Pain Rated 4-6 Oxycodone HCl 10 mg 08/19/24 13:17 08/20/24 14:32 Oxycodone Hcl (*Crx) 5 Mg Tab Ir PO 10 mg Q6H PRN Administration Pain Rated 7-10 Simethicone 80 mg 08/19/24 13:17 08/20/24 16:52 Simethicone 80 Mg Tab.Chew PO 80 mg TIDWM ANTOINETTE Administration Zolpidem Tartrate 5 mg 08/19/24 21:44 08/19/24 21:53 Zolpidem Tartrate (*Crx) 5 Mg Tablet PO 5 mg HS PRN Administration Insomnia
[2024-08-21 08:37] VITALS: BP 131/88; PULSE 64; RESP 20; TEMP 36.9; O2SAT 99
[2024-08-21] MEDS: FLUTICASONE PROP 110 MCG INHALER 12 GM (*SP) 1 PUFF INHALATION (08:42)
[2024-08-21] MEDS: LOSARTAN POTASSIUM 25 MG TABLET PO (09:23)
[2024-08-21] MEDS: SIMETHICONE 80 MG TAB.CHEW PO (09:23)
[2024-08-21] MEDS: DOCUSATE SODIUM 100 MG CAPSULE PO (09:23)
[2024-08-21] MEDS: hydroCHLOROthiazide 25 MG TABLET 50 MG PO (09:23)
[2024-08-21] MEDS: amLODIPine BESYLATE 10 MG TABLET PO (09:23)
== END 2024-08-21 10:40 | disposition home or self-care (01) | DRG 743 ==
LOC: ANHOB2 08-20 08:54
PROVIDERS: Admitting Provider Obstetrics & Gynecology Gynecology; PCP Family Medicine; Visit Provider Obstetrics & Gynecology Gynecology
PROC: 0UT94ZZ Resection of Uterus, Percutaneous Endoscopic Approach (ICD-10-PCS; principal; 2024-08-19 10:30)
DX: N94.6 Dysmenorrhea, unspecified (principal); N73.6 Female pelvic peritoneal adhesions (postinfective); D25.9 Leiomyoma of uterus, unspecified; N85.2 Hypertrophy of uterus; I10 Essential (primary) hypertension; F17.290 Nicotine dependence, other tobacco product, uncomplicated
CPT/HCPCS: 36415; 82948; 85025; 88307; 94640; A9270; J0330; J0690; J1100; J1171; J1885; J2003; J2250; J2405; J2550; J2704; J3010; J7120; J7121; Q9968